=== PATIENT | male | born 1970 | race Caucasian/White ===

== ENCOUNTER 2021-11-19 14:33 | Emergency (ER) | payer OTHER ==
[2021-11-19 14:56] VITALS: BP 194/106; PULSE 83; RESP 20
[2021-11-19] MEDS ORDERED: BACITRACIN ZINC 500 UNIT/GM OINT 28.4 GM TUBE TOPICAL ONE (15:00)
--- NOTE | 2021-11-19 15:14 | XR ---
EXAMINATION TYPE: XR elbow complete RT DATE OF EXAM: 11/19/2021 COMPARISON: NONE HISTORY: Pain FINDINGS: Three views of the elbow demonstrate no pathologic joint effusion. The osseous structures are intact . There is no acute fracture or dislocation. There is olecranon spur. IMPRESSION: 1. No acute fracture or dislocation. If symptoms persist follow-up study in 7 to 10 days could be ob tained. 2. Olecranon spur.
--- NOTE | 2021-11-19 15:36 | XR ---
EXAMINATION TYPE: XR knee complete RT DATE OF EXAM: 11/19/2021 COMPARISON: NONE HISTORY: Pain TECHNIQUE: Three views are submitted. FINDINGS: Joint spaces are preserved. Osseous structures are intact. No acute fracture seen. No metallic for eign body. IMPRESSION: 1. No acute fracture or dislocation.
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
[2021-11-19 15:51] VITALS: TEMP 98.2
== END 2021-11-19 15:55 | disposition home or self-care (01) ==
LOC: EC 14:33
DX: S81.012A Laceration without foreign body, left knee, initial encounter (principal); S80.211A Abrasion, right knee, initial encounter; S50.811A Abrasion of right forearm, initial encounter; F17.200 Nicotine dependence, unspecified, uncomplicated; V47.6XXA Car passenger injured in collision with fixed or stationary object in traffic accident, initial encounter; Y92.410 Unspecified street and highway as the place of occurrence of the external cause
CPT/HCPCS: 99284